=== PATIENT | female | born 1940 | race Caucasian/White ===

== ENCOUNTER → 2016-08-05 | Outpatient (CLI) | payer MEDICARE, BC ==
[~2016-08-05] VITALS: Ht 160 cm; Wt 93.4 kg
[~2016-08-05] MED LIST: FURO40TA2 PO; LEVO100T5 PO; LIDOCAINE 2% INJ 100 MG/5 ML SDV (FOR ANES.) As Ordered ONE; LIPI10TA PO; NS 1,000 ML IV SCH; PROPOFOL 200 MG/20 ML VIAL As Ordered ONE; TAGA200T3 PO; VITA20008 PO
--- NOTE | 2016-08-05 09:51 | ROOR ---
Patient Name: Meri Young Procedure Date: 08/05/2016 9:31 AM Date of : 1940 Age: 76 Room: [facility] Gender: Female Note Status: Finalized Procedure: Colonoscopy Indications: High risk colon cancer surveillance: Personal history of colonic polyps, Family history of colon cancer in a first-degree relative Providers: Israel BHAT MD Referring MD: ANITA BLOCK MD Requesting Provider: Medicines: Monitored Anesthesia Care Complications: No immediate complications. Procedure: Pre-Anesthesia Assessment: - The heart rate, respiratory rate, oxygen saturations, blood pressure, adequacy of pulmonary ventilation, and response to care were monitored throughout the procedure. The Colonoscope was introduced through the anus and advanced to the cecum, identified by appendiceal orifice and ileocecal valve. The colonoscopy was performed without difficulty. The patient tolerated the procedure well. The quality of the bowel preparation was good. Findings: The perianal and digital rectal examinations were normal. A diminutive polyp was found in the ascending colon. The polyp was sessile. The polyp was removed with a cold snare. Resection and retrieval were complete. Multiple medium-mouthed diverticula were found in the sigmoid colon. Small Internal Hemorrhoids. The exam was otherwise without abnormality on direct and retroflexion views. (Exam: Complete, Prep: Good or Excellent.) Impression: - One diminutive polyp in the ascending colon, removed with a cold snare. Resected and retrieved. - Moderate diverticulosis in the sigmoid colon. - Small Internal Hemorrhoids. - The examination was otherwise normal on direct and retroflexion views. Recommendation: - Repeat colonoscopy in 5 years for surveillance. - Telephone endoscopist for pathology results in 2 weeks. Israel Bhat MD Israel BHAT MD 08/05/2016 9:51:14 AM This report has been signed electronically. Number of Addenda: 0 Note Initiated On: 08/05/2016 9:31 AM Estimated Blood Loss: Estimated blood loss: none.
[2016-08-05 10:10] VITALS: BP 163/99
== END | disposition home or self-care (01) ==
LOC: M OPP 07:44
PROVIDERS: ATTEND Internal Medicine Gastroenterology
DX: Z12.11 Encounter for screening for malignant neoplasm of colon (principal); D12.2 Benign neoplasm of ascending colon; K57.30 Diverticulosis of large intestine without perforation or abscess without bleeding; K64.8 Other hemorrhoids; Z86.010 Personal history of colon polyps; Z80.0 Family history of malignant neoplasm of digestive organs; E78.5 Hyperlipidemia, unspecified; R60.0 Localized edema; E03.9 Hypothyroidism, unspecified; M19.90 Unspecified osteoarthritis, unspecified site; Z78.0 Asymptomatic menopausal state; Z79.899 Other long term (current) drug therapy

== ENCOUNTER 2018-12-23 11:47 | Day surgery (SDC) | payer MEDICARE, BC ==
[~2018-12-23] VITALS: Ht 162.6 cm; Wt 90.3 kg
[~2018-12-23 11:47] MED LIST changes: +BALANCED SALT IRRIGATION SOLUTION 500ML BAG (FOR OR EYE MACHINE) As Ordered ONE; +CEFUROXIME 1MG/0.1ML INTRACAMERAL INJ As Ordered ONE; +DUOVISC (0.50ML VISCOAT/0.55ML PROVISC) OPHTH KIT As Ordered ONE; -LIDOCAINE 2% INJ 100 MG/5 ML SDV (FOR ANES.) As Ordered ONE; +MIDAZOLAM INJ 2 MG/2 ML VIAL (J2250) As Ordered ONE; -NS 1,000 ML IV SCH; +OFLOXACIN 0.3 % (OCUFLOX) OPTH SOL 5ML OD ONE; +PHENYLEPHRINE 2.5% OPHTH SOL 2ML OD ONE; +POVIDONE-IODINE 5% OPHTH PREP SOL 30ML As Ordered ONE; +PROPARACAINE 0.5% OPHTH SOL 15ML OD ONE; -PROPOFOL 200 MG/20 ML VIAL As Ordered ONE; +TROPICAMIDE 1% OPHTH SOLN 2ML OD ONE; +fentaNYL 100 MCG/2 ML INJECTION (J3010) As Ordered ONE
[2018-12-23 14:50] VITALS: BP 171/86
--- NOTE | 2018-12-27 11:10 | RO ---
DATE OF PROCEDURE: 12/23/2018 PREOPERATIVE DIAGNOSIS: 1. Visually significant nuclear sclerotic cataract right eye. POSTOPERATIVE DIAGNOSIS: 1. Visually significant nuclear sclerotic cataract right eye. PROCEDURE: 1. Cataract extraction with use of phacoemulsification and placement of intraocular lens, AU00T0, 24.0 D, right eye. SURGEON: Maxim Mckeon DO BACK END ENGINEER: None. ANESTHESIA: Local with monitored anesthesia care (MAC). COMPLICATIONS: None. POSTOPERATIVE CONDITION: Stable. INDICATIONS FOR SURGERY: 1. Blurred vision affecting patients activities of daily living. DESCRIPTION OF PROCEDURE: The patient was seen in the preoperative area and properly identified. The correct operative eye was identified and marked. The patient received topical anesthetic, antibiotics, and topical dilating drops. The patient was then transferred to the operating room. The correct side was re-identified, and a time-out was performed. The eye was prepped and draped in a sterile fashion. The eyelids were isolated with Tegaderm tape, and the lids were held open with an adjustable speculum. A 1.0 mm paracentesis incision was made. Intraocular preservative-free Shugarcaine was then injected into the anterior chamber. Viscoelastic was then injected into the anterior chamber through the paracentesis. Using a 2.4 mm sharp-tipped keratome, the anterior chamber was entered via a temporal clear cornea incision. A continuous curvilinear capsulorrhexis was created with Utrata forceps. Hydrodissection was performed with balanced salt solution (BSS) on a blunt cannula until the nucleus was able to rotate freely. The crystalline lens was phacoemulsified and aspirated. Irrigation/aspiration was used to remove the cortical material. Cohesive viscoelastic was placed into the capsular bag to deepen it. The implant was placed into the capsular bag and allowed to unfold. Placement was confirmed by visualizing the anterior capsulorrhexis. Irrigation/aspiration was used to remove the viscoelastic. The clear corneal incision was hydrated with BSS on a blunt cannula. The lens was well positioned. The incisions were then tested for leaks and found to be negative. The eye was then palpated for appropriate pressure and adjusted accordingly with BSS. The eyelid speculum was then carefully removed. A shield was placed over the eye. The patient tolerated the procedure well and was discharged to the recovery unit in a stable condition.
== END 2018-12-23 14:55 | disposition home or self-care (01) ==
LOC: M SDC 11:47
PROVIDERS: ATTEND Ophthalmology
DX: H25.11 Age-related nuclear cataract, right eye (principal); I10 Essential (primary) hypertension; E78.5 Hyperlipidemia, unspecified; E03.9 Hypothyroidism, unspecified; K21.9 Gastro-esophageal reflux disease without esophagitis; Z79.899 Other long term (current) drug therapy
CPT/HCPCS: 66984; J2250; J3010; V2632

== ENCOUNTER 2019-01-20 08:13 | Day surgery (SDC) | payer MEDICARE, BC ==
[~2019-01-20] VITALS: Ht 162.6 cm; Wt 89.9 kg
[~2019-01-20 08:13] MED LIST changes: +LIDOCAINE 0.75%/EPINEPHRINE 0.025% IN BSS 1ML SYR INTRACAMERAL (OR ONLY) As Ordered ONE; -MIDAZOLAM INJ 2 MG/2 ML VIAL (J2250) As Ordered ONE; -OFLOXACIN 0.3 % (OCUFLOX) OPTH SOL 5ML OD ONE; +OFLOXACIN 0.3 % (OCUFLOX) OPTH SOL 5ML OS ONE; -PHENYLEPHRINE 2.5% OPHTH SOL 2ML OD ONE; +PHENYLEPHRINE 2.5% OPHTH SOL 2ML OS ONE; -PROPARACAINE 0.5% OPHTH SOL 15ML OD ONE; +PROPARACAINE 0.5% OPHTH SOL 15ML OS ONE; -TROPICAMIDE 1% OPHTH SOLN 2ML OD ONE; +TROPICAMIDE 1% OPHTH SOLN 2ML OS ONE; -fentaNYL 100 MCG/2 ML INJECTION (J3010) As Ordered ONE
[2019-01-20] MEDS ORDERED: fentaNYL 100 MCG/2 ML INJECTION (J3010) As Ordered ONE (09:40)
[2019-01-20] MEDS ORDERED: MIDAZOLAM INJ 2 MG/2 ML VIAL (J2250) As Ordered ONE (09:40)
[2019-01-20 10:30] VITALS: BP 186/79
--- NOTE | 2019-01-21 17:29 | RO ---
DATE OF PROCEDURE: 01/20/2019 PREOPERATIVE DIAGNOSIS: 1. Visually significant nuclear sclerotic cataract left eye. POSTOPERATIVE DIAGNOSIS: 1. Visually significant nuclear sclerotic cataract left eye. PROCEDURE: 1. Cataract extraction with use of phacoemulsification and placement of intraocular lens, AU00T0, 24.5 D, left eye. SURGEON: Maxim Mckeon DO EDI PROGRAMMER ANALYST: None. ANESTHESIA: Local with monitored anesthesia care (MAC). COMPLICATIONS: None. POSTOPERATIVE CONDITION: Stable. INDICATIONS FOR SURGERY: 1. Blurred vision affecting patients activities of daily living. DESCRIPTION OF PROCEDURE: The patient was seen in the preoperative area and properly identified. The correct operative eye was identified and marked. The patient received topical anesthetic, antibiotics, and topical dilating drops. The patient was then transferred to the operating room. The correct side was re-identified, and a time-out was performed. The eye was prepped and draped in a sterile fashion. The eyelids were isolated with Tegaderm tape, and the lids were held open with an adjustable speculum. A 1.0 mm paracentesis incision was made. Intraocular preservative-free Shugarcaine was then injected into the anterior chamber. Viscoelastic was then injected into the anterior chamber through the paracentesis. Using a 2.4 mm sharp-tipped keratome, the anterior chamber was entered via a temporal clear cornea incision. A continuous curvilinear capsulorrhexis was created with Utrata forceps. Hydrodissection was performed with balanced salt solution (BSS) on a blunt cannula until the nucleus was able to rotate freely. The crystalline lens was phacoemulsified and aspirated. Irrigation/aspiration was used to remove the cortical material. Cohesive viscoelastic was placed into the capsular bag to deepen it. The implant was placed into the capsular bag and allowed to unfold. Placement was confirmed by visualizing the anterior capsulorrhexis. Irrigation/aspiration was used to remove the viscoelastic. The clear corneal incision was hydrated with BSS on a blunt cannula. The lens was well positioned. The incisions were then tested for leaks and found to be negative. The eye was then palpated for appropriate pressure and adjusted accordingly with BSS. The eyelid speculum was then carefully removed. A shield was placed over the eye. The patient tolerated the procedure well and was discharged to the recovery unit in a stable condition.
== END 2019-01-20 10:42 | disposition home or self-care (01) ==
LOC: M SDC 08:13
PROVIDERS: ATTEND Ophthalmology
DX: H25.12 Age-related nuclear cataract, left eye (principal); I10 Essential (primary) hypertension; E78.5 Hyperlipidemia, unspecified; E03.9 Hypothyroidism, unspecified; K21.9 Gastro-esophageal reflux disease without esophagitis; Z79.899 Other long term (current) drug therapy; R60.9 Edema, unspecified
CPT/HCPCS: 66984; J2250; J3010; V2632

== ENCOUNTER → 2019-05-26 | Outpatient (CLI) | payer MEDICARE, BC ==
[~2019-05-26] MED LIST changes: -BALANCED SALT IRRIGATION SOLUTION 500ML BAG (FOR OR EYE MACHINE) As Ordered ONE; -CEFUROXIME 1MG/0.1ML INTRACAMERAL INJ As Ordered ONE; -DUOVISC (0.50ML VISCOAT/0.55ML PROVISC) OPHTH KIT As Ordered ONE; -LIDOCAINE 0.75%/EPINEPHRINE 0.025% IN BSS 1ML SYR INTRACAMERAL (OR ONLY) As Ordered ONE; -OFLOXACIN 0.3 % (OCUFLOX) OPTH SOL 5ML OS ONE; -PHENYLEPHRINE 2.5% OPHTH SOL 2ML OS ONE; -POVIDONE-IODINE 5% OPHTH PREP SOL 30ML As Ordered ONE; -PROPARACAINE 0.5% OPHTH SOL 15ML OS ONE; -TROPICAMIDE 1% OPHTH SOLN 2ML OS ONE
--- NOTE | 2019-05-27 16:17 | REPMRS ---
Patient History The patient states she had a clinical breast exam in May 2019. Patient is postmenopausal. No known family history of cancer. Taking unspecified hormones for 35 years. Digital Mammo Screening Bilat: May 26, 2019 - Exam #: [id number] Bilateral CC and MLO view(s) were taken. Technologist: Anabel Turner, Technologist Prior study comparison: 2017, bilateral digital mammo screening bilat, performed at [facility]. October 12, 2015, bilateral digital woman screen mammo, performed at [facility]. FINDINGS: There are scattered fibroglandular densities. There has been no change in the appearance of the mammogram from the prior studies. There is a mild amount of scattered fibroglandular density which is fairly symmetric. There is no interval development of dominant mass, architectural distortion, or grouped microcalcification suggestive of malignancy. 3-D tomosynthesis shows no additional findings. Assessment: BI-RADS/ACR category 1 mammogram. Negative Mammogram. Recommendation Routine screening mammogram of both breasts in 1 year (for women over age 40). This patient's Lifetime Breast Cancer Risk is estimated at 1.8 %. This mammogram was interpreted with the aid of an FDA-approved computer-aided dectection system. Electronically Signed By: Dandy Holguin MD 05/27/19 [id number]
== END ==
LOC: M RAD 11:41
PROVIDERS: ATTEND Internal Medicine
DX: Z12.31 Encounter for screening mammogram for malignant neoplasm of breast (principal); Z78.0 Asymptomatic menopausal state